=== PATIENT | female | born 1955 | race Caucasian/White ===

== ENCOUNTER 2019-10-31 12:51 | Inpatient (IN) | payer MEDICAID ==
[~2019-10-31] VITALS: Ht 177.8 cm; Wt 143.2 kg
[~2019-10-31 12:51] MED LIST: GABA-534 PO; HYDR-3972 PO; LACT1CAP26 PO; LEVO175T2 PO; MORP30TA60 PO; NYSPWD TP; SENN1TAB9 PO; SILV20CR13 TP; TIZA2TAB5 PO
[2019-10-31 13:29] LABS: BASOPHILS # (AUTO) 0.1 X10'3 (0-0.2); BASOPHILS % (AUTO) 0.6 % (0-1); EOSINOPHILS # (AUTO) 0.4 X10'3 (0-0.9); EOSINOPHILS % (AUTO) 3.8 % (0-6); HEMATOCRIT 31.9 % (35.0-45.0); HEMOGLOBIN 10.2 g/dl (12.0-16.0); LYMPHOCYTES # (AUTO) 1.1 X10'3 (1.1-4.8); LYMPHOCYTES % (AUTO) 11.7 % (21-51); MEAN CORPUSCULAR HEMOGLOBIN 27.3 PG (27.0-31.0); MEAN CORPUSCULAR VOLUME 85.1 FL (78-98); MONOCYTES # (AUTO) 0.8 X10'3 (0-0.9); MONOCYTES % (AUTO) 8.7 % (2-12); NEUTROPHILS # (AUTO) 7.1 X10'3 (1.8-7.7); NEUTROPHILS % (AUTO) 75.2 % (42-75); PLATELET COUNT 314 X10'3 (140-440); RED BLOOD COUNT 3.75 X10'6 (4.20-5.60); RED CELL DISTRIBUTION WIDTH 14.4 % (11.5-14.5); WHITE BLOOD COUNT 9.5 X10'3 (4.5-11.0)
[2019-10-31 13:42] LABS: PARTIAL THROMBOPLASTIN TIME 30 SECONDS (22-32)
[2019-10-31 13:43] LABS: ALANINE AMINOTRANSFERASE 14 U/L (12-78); ALBUMIN 2.5 G/DL (3.4-5.0); ALBUMIN/GLOBULIN RATIO 0.5 (1.1-1.5); ALKALINE PHOSPHATASE 76 IU/L (46-116); ANION GAP 4 (8-16); ASPARTATE AMINO TRANSFERASE 19 U/L (10-37); BILIRUBIN,TOTAL 0.3 MG/DL (0.1-1.0); BLOOD UREA NITROGEN 18 MG/DL (7-18); CALCIUM 8.2 MG/DL (8.5-10.1); CHLORIDE 106 MMOL/L (99-107); CREATININE 1.06 MG/DL (0.40-0.90); GLUCOSE 92 MG/DL (70-104); POTASSIUM 4.5 MMOL/L (3.5-5.1); SODIUM 141 MMOL/L (135-145); TOTAL CARBON DIOXIDE 30.8 MMOL/L (24-32); TOTAL PROTEIN 7.3 G/DL (6.4-8.2); eGFR 52 ML/MIN
[2019-10-31] MEDS ORDERED: piperacillin/tazo 3.375gm/50ml 50 ML IV ONE (14:20)
[2019-10-31] MEDS ORDERED: ASPI-1264 PO (16:08)
[2019-10-31] MEDS ORDERED: magnesium Cl slow-release 64mg tablet PO PRN (17:00)
[2019-10-31] MEDS ORDERED: potassium Cl 20 mEq SR tablet PO PRN ×2 (17:00)
[2019-10-31] MEDS ORDERED: magnesium 4gm in 100ml NS 100 ML IV PRN (17:00)
[2019-10-31] MEDS ORDERED: ondansetron/PF 4mg/2ml inj IV PRN (17:00)
[2019-10-31] MEDS ORDERED: acetaminophen 325mg tablet PO PRN ×2 (17:00)
[2019-10-31] MEDS ORDERED: magnesium 2GM in 50ml NS 50 ML IV PRN (17:00)
[2019-10-31] MEDS ORDERED: potassium CL 10mEq/100ml bag 100 ML IV PRN ×2 (17:00)
--- NOTE | 2019-10-31 18:09 | NUR ---
CALLED REPORT TO [facility], NURSE IS CALLING BACK
--- NOTE | 2019-10-31 18:20 | NUR ---
Patient in room [facility] 4024. I have received report from Homer HINES and had the opportunity to ask questions and assume patient care.
[2019-10-31 18:50] VITALS: BP 138/58
[2019-10-31] MEDS: morphine ER 30mg tablet PO SCH (19:55)
[2019-10-31] MEDS: sennosides/docusate sodium tablet PO SCH (19:55)
[2019-10-31] MEDS: lactobacillus rhamnosus 10,000 MMU CELLS/CAPSULE PO SCH (19:55)
[2019-10-31] MEDS: heparin, porcine 5000 units/ml vial SQ SCH (19:57)
[2019-10-31] MEDS: K and/or MAG REPLACEMENT MC SCH (20:00)
--- NOTE | 2019-10-31 20:15 | NUR ---
R EXTERNAL JUGULAR IV PLACED IN ED. PATIENT C/O PAIN AND CHECKED FOR PATENCY. UNABLE TO TELL IF PATENT AND NO BLOOD RETURN SO WILL RESTART AN IV TO ADMINISTER FLDS ORDERED AND VANCO.
[2019-10-31] MEDS: HYDROcodone/acetaminophen 10/325mg tab PO PRN (21:02)
[2019-10-31] MEDS: VANCOMYCIN 1,500MG inj. 1,500 MG in normal saline 500ml IV soln 500 ML IV SCH (21:03)
[2019-10-31] MEDS: normal saline 1000ml 1,000 ML IV SCH (21:09)
--- NOTE | 2019-10-31 21:30 | NUR ---
20 G PLACED INTO RAC AND DC'D R. EXTERNAL JUG. IV. CATH TIP NARROW AND INTACT AND PRESSURE HELD TO PUNCTURE SITE TAPE IS VERY PAINFUL TO THE PATIENT.
[2019-10-31 22:00] VITALS: BP 140/67
[2019-10-31] MEDS: gabapentin 400mg capsule PO SCH (22:12)
[2019-11-01] MEDS: piperacillin/tazo 3.375gm/50ml 50 ML IV SCH ×3 (00:04→20:22)
[2019-11-01] MEDS ORDERED: TIZA2CAP PO (00:23)
--- NOTE | 2019-11-01 03:23 | NUR ---
R HIP AND THIGH, REDDENED AND WARM TO TOUCH. RLE REDDENED WITH OPEN WEEPY AREA TO RL CALF, R ANKLE BLISTER NO LONGER INTACT, LOOSE SKIN SURROUNDING BLISTER AREA. CHRONIC OPEN TUNNELING WOUND TO DORSAL ASPECT OF FOOT,MUSCLE SHOWING AND FOUL SMELLING. SMALL NON INTACT BLISTER INNER ASPECT OF R ANKLE. LLE OPEN AREA TO OUTER ANKLE,DRY WITHOUT WEEPING. SKIN TO BOTH FEET, SKIN TO L FOOT THICKENED AND DISCOLORED. POSTERIOR THIGHS OPEN WEEPY BLISTERS. BUTTOCKS SLIGHTLY REDDENED, BLANCHABLE. PATIENT HAD DEPENDS ON UPON ARRIVAL, REMOVED FOR SKIN CHECK. NO OPEN AREAS ON BUTTUCKS. DEEP DIMPLE AREA TO SULCUS BUT CLEAR OF ANY SKIN ISSUES. PICTURES TAKEN AND IN PATIENT'S CHART.
[2019-11-01 06:00] VITALS: BP 152/75
--- NOTE | 2019-11-01 06:22 | NUR ---
Problems reprioritized. Patient report given, questions answered & plan of care reviewed with Greta HINES.
[2019-11-01] MEDS: VANCOMYCIN 1,500MG inj. 1,500 MG in normal saline 500ml IV soln 500 ML IV SCH ×2 (06:24→15:34)
[2019-11-01 06:28] LABS: BASOPHILS # (AUTO) 0.1 X10'3 (0-0.2); BASOPHILS % (AUTO) 1.4 % (0-1); EOSINOPHILS # (AUTO) 0.4 X10'3 (0-0.9); EOSINOPHILS % (AUTO) 5.5 % (0-6); HEMATOCRIT 28.7 % (35.0-45.0); HEMOGLOBIN 9.5 g/dl (12.0-16.0); LYMPHOCYTES # (AUTO) 1.3 X10'3 (1.1-4.8); LYMPHOCYTES % (AUTO) 15.7 % (21-51); MEAN CORPUSCULAR HEMOGLOBIN 28.3 PG (27.0-31.0); MEAN CORPUSCULAR HGB CONC 33.2 g/dL (33.0-36.5); MEAN CORPUSCULAR VOLUME 85.2 FL (78-98); MEAN PLATELET VOLUME 7.1 FL (7.4-10.4); MONOCYTES # (AUTO) 0.7 X10'3 (0-0.9); MONOCYTES % (AUTO) 9.1 % (2-12); NEUTROPHILS # (AUTO) 5.6 X10'3 (1.8-7.7); NEUTROPHILS % (AUTO) 68.3 % (42-75); PLATELET COUNT 265 X10'3 (140-440); RED BLOOD COUNT 3.36 X10'6 (4.20-5.60); RED CELL DISTRIBUTION WIDTH 14.6 % (11.5-14.5); WHITE BLOOD COUNT 8.1 X10'3 (4.5-11.0)
[2019-11-01 06:44] LABS: ALANINE AMINOTRANSFERASE 11 U/L (12-78); ALBUMIN 1.9 G/DL (3.4-5.0); ALBUMIN/GLOBULIN RATIO 0.4 (1.1-1.5); ALKALINE PHOSPHATASE 66 IU/L (46-116); ANION GAP 2 (8-16); ASPARTATE AMINO TRANSFERASE 16 U/L (10-37); BILIRUBIN,TOTAL 0.2 MG/DL (0.1-1.0); BLOOD UREA NITROGEN 13 MG/DL (7-18); BUN/CREATININE RATIO 13.3 (6.6-38.0); CALCIUM 7.9 MG/DL (8.5-10.1); CHLORIDE 108 MMOL/L (99-107); CHOL/HDL RATIO 2.3 (0.00-4.99); CHOLESTEROL 71 MG/DL (0-200); CREATININE 0.98 MG/DL (0.40-0.90); GLUCOSE 83 MG/DL (70-104); HDL CHOLESTEROL 31 MG/DL (35-60); LDL CHOLESTEROL 34 MG/DL (50-100); POTASSIUM 4.5 MMOL/L (3.5-5.1); SODIUM 142 MMOL/L (135-145); TOTAL CARBON DIOXIDE 32.3 MMOL/L (24-32); TOTAL PROTEIN 6.3 G/DL (6.4-8.2); TRIGLYCERIDES 42 MG/DL (20-135); eGFR 57 ML/MIN
[2019-11-01] MEDS: K and/or MAG REPLACEMENT MC SCH ×2 (08:00→20:00)
[2019-11-01] MEDS: morphine ER 30mg tablet PO SCH ×2 (08:19→20:14)
[2019-11-01] MEDS: aspirin 325mg tablet PO SCH (08:19)
[2019-11-01] MEDS: sennosides/docusate sodium tablet PO SCH ×2 (08:19→20:14)
[2019-11-01] MEDS: gabapentin 400mg capsule PO SCH ×3 (08:19→20:14)
[2019-11-01] MEDS: lactobacillus rhamnosus 10,000 MMU CELLS/CAPSULE PO SCH ×2 (08:19→20:14)
[2019-11-01] MEDS: levoTHYROXINE 175mcg tablet PO SCH (08:19)
[2019-11-01] MEDS: HYDROcodone/acetaminophen 10/325mg tab PO PRN ×2 (08:22→15:14)
[2019-11-01] MEDS: heparin, porcine 5000 units/ml vial SQ SCH ×2 (08:26→20:21)
[2019-11-01 10:00] VITALS: BP 164/63
[2019-11-01] MEDS ORDERED: pneumococcal 23-VAL P-sac vacc 25 mcg/0.5ml vial IMVAC ONE (10:00)
[2019-11-01] MEDS: normal saline 1000ml 1,000 ML IV SCH (18:52)
[2019-11-01 20:00] VITALS: BP 149/81
[2019-11-01] MEDS: polyethylene glycol 3350 17gm powd pack PO SCH (20:25)
[2019-11-02] VITALS: BP 137/74
[2019-11-02] MEDS: piperacillin/tazo 3.375gm/50ml 50 ML IV SCH ×3 (01:43→20:39)
[2019-11-02] MEDS: HYDROcodone/acetaminophen 10/325mg tab PO PRN ×3 (01:48→17:40)
[2019-11-02] MEDS ORDERED: VANCOMYCIN LEVEL IV ONE (05:30)
[2019-11-02] MEDS: VANCOMYCIN 1,500MG inj. 1,500 MG in normal saline 500ml IV soln 500 ML IV SCH (05:32)
[2019-11-02 05:55] LABS: BASOPHILS # (AUTO) 0.1 X10'3 (0-0.2); BASOPHILS % (AUTO) 1.2 % (0-1); EOSINOPHILS # (AUTO) 0.5 X10'3 (0-0.9); EOSINOPHILS % (AUTO) 6.8 % (0-6); HEMATOCRIT 28.3 % (35.0-45.0); HEMOGLOBIN 9.3 g/dl (12.0-16.0); LYMPHOCYTES # (AUTO) 1.6 X10'3 (1.1-4.8); LYMPHOCYTES % (AUTO) 22.5 % (21-51); MEAN CORPUSCULAR HEMOGLOBIN 27.7 PG (27.0-31.0); MEAN CORPUSCULAR HGB CONC 32.8 g/dL (33.0-36.5); MEAN CORPUSCULAR VOLUME 84.6 FL (78-98); MEAN PLATELET VOLUME 6.9 FL (7.4-10.4); MONOCYTES # (AUTO) 0.7 X10'3 (0-0.9); MONOCYTES % (AUTO) 10.6 % (2-12); NEUTROPHILS # (AUTO) 4.1 X10'3 (1.8-7.7); NEUTROPHILS % (AUTO) 58.9 % (42-75); PLATELET COUNT 339 X10'3 (140-440); RED BLOOD COUNT 3.34 X10'6 (4.20-5.60); RED CELL DISTRIBUTION WIDTH 14.4 % (11.5-14.5)
[2019-11-02 05:58] LABS: ALANINE AMINOTRANSFERASE 11 U/L (12-78); ALBUMIN/GLOBULIN RATIO 0.5 (1.1-1.5); ALKALINE PHOSPHATASE 59 IU/L (46-116); ANION GAP 2 (8-16); ASPARTATE AMINO TRANSFERASE 16 U/L (10-37); BILIRUBIN,TOTAL 0.2 MG/DL (0.1-1.0); BLOOD UREA NITROGEN 12 MG/DL (7-18); BUN/CREATININE RATIO 11.7 (6.6-38.0); CALCIUM 7.9 MG/DL (8.5-10.1); CHLORIDE 108 MMOL/L (99-107); CREATININE 1.03 MG/DL (0.40-0.90); GLUCOSE 78 MG/DL (70-104); POTASSIUM 4.3 MMOL/L (3.5-5.1); SODIUM 142 MMOL/L (135-145); TOTAL CARBON DIOXIDE 32.1 MMOL/L (24-32); TOTAL PROTEIN 6.4 G/DL (6.4-8.2); eGFR 54 ML/MIN
[2019-11-02 06:00] VITALS: BP 115/46
--- NOTE | 2019-11-02 06:27 | NUR ---
Problems reprioritized. Patient report given, questions answered & plan of care reviewed with EUFEMIA. Addendum: 11/02/19 at 0627 by Gilberto Ballesteros RN Amended: Links added.
[2019-11-02] MEDS: vancomycin/NS 1 GM ADD-VANTAGE 250 ML X 1 DOSE IV SCH ×2 (07:34→17:54)
[2019-11-02] MEDS: K and/or MAG REPLACEMENT MC SCH ×2 (08:00→19:10)
[2019-11-02] MEDS: levoTHYROXINE 175mcg tablet PO SCH (09:37)
[2019-11-02] MEDS: lactobacillus rhamnosus 10,000 MMU CELLS/CAPSULE PO SCH ×2 (09:37→20:13)
[2019-11-02] MEDS: aspirin 325mg tablet PO SCH (09:37)
[2019-11-02] MEDS: morphine ER 30mg tablet PO SCH ×2 (09:37→20:13)
[2019-11-02] MEDS: gabapentin 400mg capsule PO SCH ×3 (09:37→20:13)
[2019-11-02] MEDS: sennosides/docusate sodium tablet PO SCH ×2 (09:37→20:13)
[2019-11-02] MEDS: heparin, porcine 5000 units/ml vial SQ SCH ×2 (09:39→20:13)
[2019-11-02 10:00] VITALS: BP 163/82
[2019-11-02] MEDS: normal saline 1000ml 1,000 ML IV SCH (13:23)
[2019-11-02 18:00] VITALS: BP 188/88
--- NOTE | 2019-11-02 18:43 | NUR ---
Problems reprioritized. Patient report given, questions answered & plan of care reviewed with FLORA Diaz.
[2019-11-02] MEDS: polyethylene glycol 3350 17gm powd pack PO SCH (20:14)
[2019-11-02 22:00] VITALS: BP 151/82
[2019-11-03] MEDS: HYDROcodone/acetaminophen 10/325mg tab PO PRN ×3 (02:42→23:44)
[2019-11-03] MEDS: piperacillin/tazo 3.375gm/50ml 50 ML IV SCH ×4 (02:42→23:20)
[2019-11-03] MEDS: normal saline 1000ml 1,000 ML IV SCH ×2 (05:00→23:21)
[2019-11-03 05:44] LABS: BASOPHILS # (AUTO) 0.1 X10'3 (0-0.2); BASOPHILS % (AUTO) 1.1 % (0-1); EOSINOPHILS # (AUTO) 0.4 X10'3 (0-0.9); EOSINOPHILS % (AUTO) 6.5 % (0-6); HEMATOCRIT 28.2 % (35.0-45.0); HEMOGLOBIN 9.4 g/dl (12.0-16.0); LYMPHOCYTES # (AUTO) 1.9 X10'3 (1.1-4.8); LYMPHOCYTES % (AUTO) 28.6 % (21-51); MEAN CORPUSCULAR HEMOGLOBIN 28.2 PG (27.0-31.0); MEAN CORPUSCULAR HGB CONC 33.2 g/dL (33.0-36.5); MEAN PLATELET VOLUME 6.6 FL (7.4-10.4); MONOCYTES # (AUTO) 0.7 X10'3 (0-0.9); MONOCYTES % (AUTO) 10.8 % (2-12); NEUTROPHILS # (AUTO) 3.5 X10'3 (1.8-7.7); PLATELET COUNT 387 X10'3 (140-440); RED BLOOD COUNT 3.32 X10'6 (4.20-5.60); RED CELL DISTRIBUTION WIDTH 14.2 % (11.5-14.5); WHITE BLOOD COUNT 6.6 X10'3 (4.5-11.0)
[2019-11-03 05:58] LABS: ALANINE AMINOTRANSFERASE 12 U/L (12-78); ALBUMIN 2.1 G/DL (3.4-5.0); ALBUMIN/GLOBULIN RATIO 0.4 (1.1-1.5); ALKALINE PHOSPHATASE 59 IU/L (46-116); ANION GAP 4 (8-16); ASPARTATE AMINO TRANSFERASE 15 U/L (10-37); BILIRUBIN,TOTAL 0.3 MG/DL (0.1-1.0); BLOOD UREA NITROGEN 10 MG/DL (7-18); BUN/CREATININE RATIO 8.6 (6.6-38.0); CALCIUM 7.9 MG/DL (8.5-10.1); CHLORIDE 108 MMOL/L (99-107); CREATININE 1.16 MG/DL (0.40-0.90); GLUCOSE 75 MG/DL (70-104); POTASSIUM 4.3 MMOL/L (3.5-5.1); SODIUM 143 MMOL/L (135-145); TOTAL CARBON DIOXIDE 30.7 MMOL/L (24-32); TOTAL PROTEIN 6.8 G/DL (6.4-8.2); eGFR 47 ML/MIN
[2019-11-03 06:00] VITALS: BP 135/62
--- NOTE | 2019-11-03 06:19 | NUR ---
REPORT GIVEN TO FLORA BELTRÁN.
--- NOTE | 2019-11-03 06:35 | NUR ---
Patient in room [facility]TH[facility] 4024. I have received report from FLORA Diaz and had the opportunity to ask questions and assume patient care.
[2019-11-03] MEDS: vancomycin/NS 1 GM ADD-VANTAGE 250 ML X 1 DOSE IV SCH ×2 (07:06→19:00)
[2019-11-03] MEDS: K and/or MAG REPLACEMENT MC SCH ×2 (08:00→19:39)
[2019-11-03] MEDS: sennosides/docusate sodium tablet PO SCH ×2 (08:28→20:51)
[2019-11-03] MEDS: gabapentin 400mg capsule PO SCH ×3 (08:28→20:53)
[2019-11-03] MEDS: levoTHYROXINE 175mcg tablet PO SCH (08:29)
[2019-11-03] MEDS: heparin, porcine 5000 units/ml vial SQ SCH ×2 (08:29→20:53)
[2019-11-03] MEDS: morphine ER 30mg tablet PO SCH ×3 (08:29→20:52)
[2019-11-03] MEDS: aspirin 325mg tablet PO SCH (08:29)
[2019-11-03] MEDS: lactobacillus rhamnosus 10,000 MMU CELLS/CAPSULE PO SCH ×2 (08:29→20:52)
--- NOTE | 2019-11-03 08:58 | NUR ---
0700 Vanco dose overfilled. Spoke with pharmacy and was recommended to finish VTBI left in bag in order for the pt to get the entire dose. Will hang 0800 zosyn when infusion of Vanco completed.
[2019-11-03 10:30] VITALS: BP 140/65
[2019-11-03] MEDS ORDERED: cyclobenzaprine 10mg tablet PO PRN (14:05)
--- NOTE | 2019-11-03 15:35 | NUR ---
Dressing to right lower extremity changed per written orders.
[2019-11-03 18:00] VITALS: BP 133/85
--- NOTE | 2019-11-03 18:07 | NUR ---
Problems reprioritized. Patient report given, questions answered & plan of care reviewed with FLORA Diaz.
[2019-11-03] MEDS ORDERED: VANCOMYCIN LEVEL IV ONE (18:30)
--- NOTE | 2019-11-03 19:40 | NUR ---
critical lab ; vanco trough 23.1, Dr Suazo notified. Vanco dose held.
[2019-11-03] MEDS: polyethylene glycol 3350 17gm powd pack PO SCH (20:52)
[2019-11-03 22:00] VITALS: BP 128/6
[2019-11-03] MEDS: tizanidine 4mg tablet PO PRN (23:14)
[2019-11-03] MEDS: VANCOMYCIN 750MG IV in NS 250 ML IV SCH (23:20)
[2019-11-04 05:53] VITALS: BP 137/69
[2019-11-04 06:00] VITALS: BP 137/69
[2019-11-04 06:02] LABS: BASOPHILS # (AUTO) 0.1 X10'3 (0-0.2); BASOPHILS % (AUTO) 0.9 % (0-1); EOSINOPHILS # (AUTO) 0.3 X10'3 (0-0.9); EOSINOPHILS % (AUTO) 5.3 % (0-6); HEMATOCRIT 28.7 % (35.0-45.0); HEMOGLOBIN 9.4 g/dl (12.0-16.0); LYMPHOCYTES # (AUTO) 1.8 X10'3 (1.1-4.8); LYMPHOCYTES % (AUTO) 27.8 % (21-51); MEAN CORPUSCULAR HEMOGLOBIN 27.7 PG (27.0-31.0); MEAN CORPUSCULAR HGB CONC 32.7 g/dL (33.0-36.5); MEAN CORPUSCULAR VOLUME 84.7 FL (78-98); MEAN PLATELET VOLUME 6.7 FL (7.4-10.4); MONOCYTES # (AUTO) 0.7 X10'3 (0-0.9); MONOCYTES % (AUTO) 10.5 % (2-12); NEUTROPHILS # (AUTO) 3.6 X10'3 (1.8-7.7); NEUTROPHILS % (AUTO) 55.5 % (42-75); PLATELET COUNT 396 X10'3 (140-440); RED BLOOD COUNT 3.39 X10'6 (4.20-5.60); RED CELL DISTRIBUTION WIDTH 14.5 % (11.5-14.5); WHITE BLOOD COUNT 6.5 X10'3 (4.5-11.0)
[2019-11-04 06:24] LABS: % IRON SATURATION 15 % (11-46); IRON 28 UG/DL (49-151); TOTAL IRON BINDING CAPACITY 186 UG/DL (259-388)
--- NOTE | 2019-11-04 06:32 | NUR ---
REPORT GIVEN TO FLORA MUÑOZ.
[2019-11-04 07:10] LABS: ALANINE AMINOTRANSFERASE 12 U/L (12-78); ALBUMIN 2.1 G/DL (3.4-5.0); ALBUMIN/GLOBULIN RATIO 0.5 (1.1-1.5); ALKALINE PHOSPHATASE 56 IU/L (46-116); ANION GAP 5 (8-16); ASPARTATE AMINO TRANSFERASE 19 U/L (10-37); BILIRUBIN,TOTAL 0.2 MG/DL (0.1-1.0); BLOOD UREA NITROGEN 9 MG/DL (7-18); BUN/CREATININE RATIO 8.7 (6.6-38.0); CALCIUM 7.9 MG/DL (8.5-10.1); CHLORIDE 109 MMOL/L (99-107); CREATININE 1.04 MG/DL (0.40-0.90); FERRITIN 97 NG/ML (8-252); GLUCOSE 77 MG/DL (70-104); MAGNESIUM 2.2 MG/DL (1.5-2.4); POTASSIUM 4.4 MMOL/L (3.5-5.1); SODIUM 144 MMOL/L (135-145); TOTAL PROTEIN 6.6 G/DL (6.4-8.2); eGFR 53 ML/MIN
[2019-11-04] MEDS ORDERED: aspirin 325mg tablet PO SCH (08:00)
[2019-11-04] MEDS: K and/or MAG REPLACEMENT MC SCH ×2 (08:00→19:34)
[2019-11-04] MEDS: morphine ER 30mg tablet PO SCH ×3 (08:00→19:41)
[2019-11-04] MEDS: sennosides/docusate sodium tablet PO SCH ×2 (08:18→19:42)
[2019-11-04] MEDS: lactobacillus rhamnosus 10,000 MMU CELLS/CAPSULE PO SCH ×2 (08:18→19:41)
[2019-11-04] MEDS: gabapentin 400mg capsule PO SCH ×3 (08:18→19:41)
[2019-11-04] MEDS: heparin, porcine 5000 units/ml vial SQ SCH ×2 (08:19→19:41)
[2019-11-04] MEDS: levoTHYROXINE 175mcg tablet PO SCH (08:19)
[2019-11-04] MEDS: piperacillin/tazo 3.375gm/50ml 50 ML IV SCH ×2 (08:20→16:21)
[2019-11-04] MEDS: aspirin 325mg tablet PO SCH (08:30)
[2019-11-04 10:00] VITALS: BP 148/70
[2019-11-04] MEDS: iron sucrose complex injection 100 MG in normal saline 100ml IV soln 100 ML IV SCH (12:51)
[2019-11-04] MEDS: VANCOMYCIN 750MG IV in NS 250 ML IV SCH ×2 (14:14→22:42)
--- NOTE | 2019-11-04 14:14 | NUR ---
Spoke with pharmacy, they confirmed it was okay for patient to receive vanco at 1400 due to not having adequate vascular access.
--- NOTE | 2019-11-04 14:29 | NUR ---
[facility] LINE REF: [id number] LOT: [id number] EXP: 03/18/2020
[2019-11-04] MEDS: HYDROcodone/acetaminophen 10/325mg tab PO PRN ×2 (16:28→22:41)
[2019-11-04 17:17] LABS: OCCULT BLOOD STOOL NEGATIVE (Neg)
[2019-11-04 18:00] VITALS: BP 128/86
--- NOTE | 2019-11-04 18:11 | NUR ---
Problems reprioritized. Patient report given, questions answered & plan of care reviewed with Jamilah HINES.
[2019-11-04] MEDS: normal saline 1000ml 1,000 ML IV SCH (19:42)
[2019-11-04] MEDS: polyethylene glycol 3350 17gm powd pack PO SCH (21:00)
[2019-11-04] MEDS: tizanidine 4mg tablet PO PRN (21:53)
[2019-11-04 22:04] VITALS: BP 137/68
[2019-11-05] MEDS: piperacillin/tazo 3.375gm/50ml 50 ML IV SCH ×3 (00:09→16:01)
[2019-11-05 04:39] LABS: BASOPHILS # (AUTO) 0.1 X10'3 (0-0.2); BASOPHILS % (AUTO) 0.7 % (0-1); EOSINOPHILS # (AUTO) 0.4 X10'3 (0-0.9); EOSINOPHILS % (AUTO) 5.1 % (0-6); HEMOGLOBIN 9.4 g/dl (12.0-16.0); LYMPHOCYTES # (AUTO) 2.1 X10'3 (1.1-4.8); LYMPHOCYTES % (AUTO) 30.3 % (21-51); MEAN CORPUSCULAR HEMOGLOBIN 28.2 PG (27.0-31.0); MEAN CORPUSCULAR HGB CONC 33.4 g/dL (33.0-36.5); MEAN CORPUSCULAR VOLUME 84.5 FL (78-98); MEAN PLATELET VOLUME 6.2 FL (7.4-10.4); MONOCYTES # (AUTO) 0.8 X10'3 (0-0.9); MONOCYTES % (AUTO) 10.9 % (2-12); NEUTROPHILS # (AUTO) 3.7 X10'3 (1.8-7.7); PLATELET COUNT 398 X10'3 (140-440); RED BLOOD COUNT 3.32 X10'6 (4.20-5.60); RED CELL DISTRIBUTION WIDTH 14.2 % (11.5-14.5)
[2019-11-05 04:53] LABS: ALANINE AMINOTRANSFERASE 6 U/L (12-78); ALBUMIN 2.1 G/DL (3.4-5.0); ALBUMIN/GLOBULIN RATIO 0.4 (1.1-1.5); ALKALINE PHOSPHATASE 56 IU/L (46-116); ANION GAP 3 (8-16); ASPARTATE AMINO TRANSFERASE 20 U/L (10-37); BILIRUBIN,TOTAL 0.2 MG/DL (0.1-1.0); BLOOD UREA NITROGEN 11 MG/DL (7-18); BUN/CREATININE RATIO 9.8 (6.6-38.0); CALCIUM 7.9 MG/DL (8.5-10.1); CHLORIDE 109 MMOL/L (99-107); CREATININE 1.12 MG/DL (0.40-0.90); GLUCOSE 78 MG/DL (70-104); POTASSIUM 4.3 MMOL/L (3.5-5.1); SODIUM 143 MMOL/L (135-145); TOTAL CARBON DIOXIDE 30.8 MMOL/L (24-32); eGFR 49 ML/MIN
[2019-11-05 06:00] VITALS: BP 140/78
--- NOTE | 2019-11-05 06:36 | NUR ---
reported to days. noted pt has picc line intact and peripheral IV as well. anticipate WOC today
[2019-11-05] MEDS: lactobacillus rhamnosus 10,000 MMU CELLS/CAPSULE PO SCH ×2 (07:27→19:54)
[2019-11-05] MEDS: sennosides/docusate sodium tablet PO SCH ×2 (07:27→19:54)
[2019-11-05] MEDS: gabapentin 400mg capsule PO SCH ×3 (07:28→19:54)
[2019-11-05] MEDS: levoTHYROXINE 175mcg tablet PO SCH (07:28)
[2019-11-05] MEDS: heparin, porcine 5000 units/ml vial SQ SCH ×2 (07:28→19:55)
[2019-11-05] MEDS: morphine ER 30mg tablet PO SCH ×2 (07:28→19:54)
[2019-11-05] MEDS: aspirin 325mg tablet PO SCH (07:30)
[2019-11-05] MEDS: K and/or MAG REPLACEMENT MC SCH ×2 (07:33→19:48)
[2019-11-05] MEDS: iron sucrose complex injection 100 MG in normal saline 100ml IV soln 100 ML IV SCH (08:00)
[2019-11-05 10:01] VITALS: BP 169/70
[2019-11-05] MEDS ORDERED: cloNIDine 0.1 mg tablet PO PRN (10:20)
[2019-11-05] MEDS ORDERED: VANCOMYCIN LEVEL IV ONE (10:30)
[2019-11-05 10:45] VITALS: BP 136/71
[2019-11-05] MEDS: HYDROcodone/acetaminophen 10/325mg tab PO PRN ×2 (11:15→19:55)
[2019-11-05] MEDS: VANCOMYCIN 750MG IV in NS 250 ML IV SCH ×2 (12:11→21:57)
[2019-11-05] MEDS: nystatin 15 GM powder TP SCH ×2 (13:00→19:55)
--- NOTE | 2019-11-05 14:03 | NUR ---
Initial: 100% PO intake heart healthy diet. Has bilateral lower edema r/t lymphedema. Admitted with right hip and right thigh cellulitis history of chronic foot ulcer, chronic lymphedema, CKD stage 3. Per MD note cellulitis is improving slowly. WOC following for venous ulcer to right plantar, documented as reddened and draining. Patient seen at bedside and given written protein education handout with verbal review. Pt requesting double eggs and double meat with meals, d/w dietary. Recommend: 1. continue heart healthy diet 2. double meat and eggs 3. routine bowel care 4. weight per rx Addendum: 11/05/19 at [address] Amended: Links added.
[2019-11-05] MEDS: normal saline 1000ml 1,000 ML IV SCH ×2 (16:04→21:57)
[2019-11-05 18:00] VITALS: BP 157/78
--- NOTE | 2019-11-05 18:14 | NUR ---
Problems reprioritized. Patient report given, questions answered & plan of care reviewed with Jamilah HINES.
[2019-11-05] MEDS: polyethylene glycol 3350 17gm powd pack PO SCH (19:54)
[2019-11-05 21:34] VITALS: BP 166/88
[2019-11-05] MEDS: tizanidine 4mg tablet PO PRN (21:58)
[2019-11-06] MEDS: piperacillin/tazo 3.375gm/50ml 50 ML IV SCH ×2 (00:09→07:55)
[2019-11-06 01:45] VITALS: BP 163/94
[2019-11-06] MEDS: HYDROcodone/acetaminophen 10/325mg tab PO PRN ×2 (01:45→13:28)
[2019-11-06 06:00] VITALS: BP 126/71
--- NOTE | 2019-11-06 06:13 | NUR ---
Problems reprioritized. Patient report given, questions answered & plan of care reviewed with Amanda HINES.
[2019-11-06] MEDS: lactobacillus rhamnosus 10,000 MMU CELLS/CAPSULE PO SCH (07:55)
[2019-11-06] MEDS: morphine ER 30mg tablet PO SCH (07:55)
[2019-11-06] MEDS: levoTHYROXINE 175mcg tablet PO SCH (07:55)
[2019-11-06] MEDS: sennosides/docusate sodium tablet PO SCH (07:55)
[2019-11-06] MEDS: aspirin 325mg tablet PO SCH (07:55)
[2019-11-06] MEDS: heparin, porcine 5000 units/ml vial SQ SCH (07:55)
[2019-11-06] MEDS: gabapentin 400mg capsule PO SCH ×2 (07:55→12:34)
[2019-11-06] MEDS: K and/or MAG REPLACEMENT MC SCH (08:00)
[2019-11-06] MEDS: nystatin 15 GM powder TP SCH ×2 (08:02→12:35)
[2019-11-06] MEDS: iron sucrose complex injection 100 MG in normal saline 100ml IV soln 100 ML IV SCH (08:43)
[2019-11-06 09:13] VITALS: BP 134/77
[2019-11-06] MEDS: VANCOMYCIN 750MG IV in NS 250 ML IV SCH (11:28)
[2019-11-06] MEDS ORDERED: SULF1TAB49 PO (12:03)
[2019-11-06] MEDS ORDERED: NYSPWD TP (12:03)
[2019-11-06] MEDS ORDERED: CEPH250T PO (12:03)
--- NOTE | 2019-11-06 14:20 | NUR ---
Patient stable for discharge. Belongings gathered and sent home with patient. Medications called to pharmacy. PICC and PIV both removed, cannula intact, no bleeding noted.
== END 2019-11-06 14:15 | disposition home health service (06) | DRG 383 ==
LOC: ER 12:52 → ED HOLD 17:00 → OBSVTOIN 18:12 → ORTHO 4S 18:45
PROVIDERS: ADMIT Internal Medicine; ATTEND Internal Medicine
PROC: 02HV33Z Insertion of Infusion Device into Superior Vena Cava, Percutaneous Approach (ICD-10-PCS; principal; 2019-11-04)
PROC: B548ZZA Ultrasonography of Superior Vena Cava, Guidance (ICD-10-PCS; 2019-11-04)
DX: L03.115 Cellulitis of right lower limb (principal); E66.01 Morbid (severe) obesity due to excess calories; N18.3 Chronic kidney disease, stage 3 (moderate); E03.9 Hypothyroidism, unspecified; G25.81 Restless legs syndrome; D50.9 Iron deficiency anemia, unspecified; G89.4 Chronic pain syndrome; G47.00 Insomnia, unspecified; I89.0 Lymphedema, not elsewhere classified; L89.899 Pressure ulcer of other site, unspecified stage; L97.519 Non-pressure chronic ulcer of other part of right foot with unspecified severity; L97.929 Non-pressure chronic ulcer of unspecified part of left lower leg with unspecified severity; Z74.01 Bed confinement status; Z79.82 Long term (current) use of aspirin; Z99.3 Dependence on wheelchair; Z68.42 Body mass index [BMI] 45.0-49.9, adult; Z88.8 Allergy status to other drugs, medicaments and biological substances; Z91.041 Radiographic dye allergy status
CPT/HCPCS: 36415; 36573; 76937; 80053; 80061; 80202; 82272; 82607; 82728; 83540; 83550; 83605; 83735; 84145; 84443; 85025; 85610; 85651; 85730; 87040; 87081; 93970; 96374; 97161; 97530; 99285; G0378; J1644; J1756; J2543; J3370; J7030; J7040; J7050

== ENCOUNTER 2020-02-04 10:09 | Emergency (ER) | payer MEDICAID ==
[~2020-02-04] VITALS: Ht 182.9 cm; Wt 138.6 kg
[~2020-02-04 10:09] MED LIST changes: +ASPI-1264 PO; +CEPH250T PO; -SILV20CR13 TP; +TIZA2CAP PO; -TIZA2TAB5 PO
[2020-02-04] MEDS ORDERED: Dakins solution (1/4 strength) 473ml solution TP SCH (15:30)
[2020-02-04] MEDS ORDERED: Dakins solution (1/4 strength) 473ml solution TP ONE (15:30)
[2020-02-04] MEDS ORDERED: LIDOcaine 1% W/epiNEPHrine 1:100,000 20ml vial SQ ONE (15:50)
[2020-02-04 16:10] VITALS: BP 176/97
== END 2020-02-04 16:11 | disposition home or self-care (01) ==
LOC: ER 10:13
DX: L02.415 Cutaneous abscess of right lower limb (principal); R60.0 Localized edema; N18.9 Chronic kidney disease, unspecified; E03.9 Hypothyroidism, unspecified; Z98.890 Other specified postprocedural states; Z88.8 Allergy status to other drugs, medicaments and biological substances; Z79.82 Long term (current) use of aspirin; Z79.2 Long term (current) use of antibiotics; Z79.899 Other long term (current) drug therapy
CPT/HCPCS: 73700; 99284